=== PATIENT | female | born 1990 | race Caucasian/White ===

== ENCOUNTER 2017-05-02 20:36 | Emergency (ER) | payer SELFPAY ==
[2017-05-02 20:44] VITALS: BP 135/78; PULSE 89; RESP 16; TEMP 36.6; O2SAT 99; BMI 24.2
--- NOTE | 2017-05-02 20:53 | PC.NURSE ---
Critical BG called from lab and reported to
--- NOTE | 2017-05-02 20:56 | HMH.EDEYEP ---
ED Disposition Clinical Impression: Acute iritis Disposition: Home, Self-Care Condition on Discharge: Good Instructions: How to Instill Eye Drops Additional Instructions: call dr cornelius if needed Referrals: Diann Cox PA [Primary Care Provider] - - Critical Care Critical Care Time: No Attestation: On 05/02/17, the high probability of a clinically significant, sudden or life threatening deterioration of the following system(s) required my full and direct attention, intervention and personal management. The time I documented below is in addition to time spent performing reported procedures but includes the following listed in this critical care notation. Medical Decision Making - Medical Records Medical records reviewed: Yes: I reviewed the patient's medical records. Vital Signs: 05/02/17 20:44 Temperature 97.9 F Temperature Source Oral Pulse Rate [Right Brachial] 89 Respiratory Rate 16 Blood Pressure [Right Arm] 135/78 Blood Pressure Mean [Right Arm] 97 Blood Pressure Source [Right Arm] Automatic Cuff Blood Pressure Position [Right Arm] Sitting 02 Sat by Pulse Oximetry 99 Oxygen Delivery Method Room Air - Lab Data Lab results reviewed: Yes: I reviewed the patient's lab results. - Physician Consults Physician Consulted: adryan Reason -: Pt condition - Jeanmarie Inquiry Pt receiving controlled substance: No Eye Problem HPI - General Chief complaint: Eye Problems Stated complaint: FB in eye Time Seen by Provider: 05/02/17 20:57 Mode of Arrival: Ambulatory Source of Information: Patient, Significant Other, Medical Record Limitations: No Limitations Description of Symptoms (Recalled from ER Triage Doc. by RN): RIGHT EYE PAIN, POSSIBLE HAIR DYE - History of Present Illness HPI Narrative: possible hair dye in rt eye this afternoon - pt with pain which has been progressive with blurred vision- she has used visine and irrigated eye after incident chief complaint: eye pain, vision change Onset (ago): hour(s) Onset description: gradual Duration: constant Location: right eye Eye Symptoms: decreased vision, blurry vision, photophobia Place: other (at [facility] ) Mechanism: chemical exposure Severity: moderate If Pain, Quality: burning Treatments Prior to Arrival: irrigated eye, OTC eye drops - Related Data Home Medications Medication Instructions Recorded Confirmed lamotrigine 100 mg disintegrating 100 mg PO QDAY tab 04/08/17 tablet olanzapine 10 mg tablet 10 mg PO QDAY 04/08/17 phentermine 37.5 mg tablet 37.5 mg PO QDAY 04/08/17 Previous Rx's Medication Instructions Recorded fluticasone 50 mcg/actuation nasal 1 spray INTRANASAL QDAY 30 Days 04/08/17 spray,suspension #9.9 g prednisone 20 mg tablet 20 mg PO BID #10 tab 04/08/17 Allergies Allergy/AdvReac Type Severity Reaction Status Date / Time azithromycin [From ZITHROMAX] Allergy Unknown Verified 04/08/17 15:37 butorphanol [From STADOL] Allergy Unknown Verified 04/08/17 15:37 hydrocodone [From LORTAB] Allergy Unknown Verified 04/08/17 15:37 Iodinated Contrast Media - Allergy Unknown Verified 04/08/17 15:37 Oral and [IODINATED CONTRAST MEDIA - IV DYE] morphine [MORPHINE] Allergy Unknown Verified 04/08/17 15:37 oxycodone [From PERCOCET] Allergy Unknown Verified 04/08/17 15:37 promethazine [From PHENERGAN] Allergy Unknown Verified 04/08/17 15:37 [facility] History I have reviewed the patient's past medical history: Yes Medical History: Reports:: Anxiety, Depression Other Surgeries: Yes: Dilation and Curettage Amputation: No Fractures: No - Social History Smoking Status: Current every day smoker Tobacco Type: cigarettes # Packs/Day (cigarettes): 1 Alcohol Intake: never Substance Use Type: denies use - Psychiatric History Expresses thoughts of harming self/others: None Suicide Plan Description: No Plan Pschychiatric History:: Reports:: Anxiety, Depression Family Hx:: Adrienne
--- NOTE | 2017-05-02 21:03 | PC.NURSE ---
Vision test right eye 20/100 Left eye and both eyes 20/20
--- NOTE | 2017-05-02 21:27 | ED_ITS ---
ED Disposition Clinical Impression: Acute iritis Disposition: Home, Self-Care Condition on Discharge: Good Instructions: How to Instill Eye Drops Additional Instructions: call dr cornelius if needed Referrals: Diann Cox PA [Primary Care Provider] - - Critical Care Critical Care Time: No Attestation: On 05/02/17, the high probability of a clinically significant, sudden or life threatening deterioration of the following system(s) required my full and direct attention, intervention and personal management. The time I documented below is in addition to time spent performing reported procedures but includes the following listed in this critical care notation. Medical Decision Making - Medical Records Medical records reviewed: Yes: I reviewed the patient's medical records. Vital Signs: 05/02/17 20:44 Temperature 97.9 F Temperature Source Oral Pulse Rate [Right Brachial] 89 Respiratory Rate 16 Blood Pressure [Right Arm] 135/78 Blood Pressure Mean [Right Arm] 97 Blood Pressure Source [Right Arm] Automatic Cuff Blood Pressure Position [Right Arm] Sitting 02 Sat by Pulse Oximetry 99 Oxygen Delivery Method Room Air - Lab Data Lab results reviewed: Yes: I reviewed the patient's lab results. - Physician Consults Physician Consulted: adryan Reason -: Pt condition - Jeanmarie Inquiry Pt receiving controlled substance: No Eye Problem HPI - General Chief complaint: Eye Problems Stated complaint: FB in eye Time Seen by Provider: 05/02/17 20:57 Mode of Arrival: Ambulatory Source of Information: Patient, Significant Other, Medical Record Limitations: No Limitations Description of Symptoms (Recalled from ER Triage Doc. by RN): RIGHT EYE PAIN, POSSIBLE HAIR DYE - History of Present Illness HPI Narrative: possible hair dye in rt eye this afternoon - pt with pain which has been progressive with blurred vision- she has used visine and irrigated eye after incident chief complaint: eye pain, vision change Onset (ago): hour(s) Onset description: gradual Duration: constant Location: right eye Eye Symptoms: decreased vision, blurry vision, photophobia Place: other (at [facility] ) Mechanism: chemical exposure Severity: moderate If Pain, Quality: burning Treatments Prior to Arrival: irrigated eye, OTC eye drops - Related Data Home Medications Medication Instructions Recorded Confirmed lamotrigine 100 mg disintegrating 100 mg PO QDAY tab 04/08/17 tablet olanzapine 10 mg tablet 10 mg PO QDAY 04/08/17 phentermine 37.5 mg tablet 37.5 mg PO QDAY 04/08/17 Previous Rx's Medication Instructions Recorded fluticasone 50 mcg/actuation nasal 1 spray INTRANASAL QDAY 30 Days 04/08/17 spray,suspension #9.9 g prednisone 20 mg tablet 20 mg PO BID #10 tab 04/08/17 Allergies Allergy/AdvReac Type Severity Reaction Status Date / Time azithromycin [From ZITHROMAX] Allergy Unknown Verified 04/08/17 15:37 butorphanol [From STADOL] Allergy Unknown Verified 04/08/17 15:37 hydrocodone [From LORTAB] Allergy Unknown Verified 04/08/17 15:37 Iodinated Contrast Media - Allergy Unknown Verified 04/08/17 15:37 Oral and [IODINATED CONTRAST MEDIA - IV DYE] morphine [MORPHINE] Allergy Unknown Verified 04/08/17 15:
--- NOTE | 2017-05-02 21:30 | PC.NURSE ---
ASSISTED DR ROSALES WITH EYE PROCEDURES, DR ROSALES SPOKE WITH DR PORTILLO.
[2017-05-02 21:39] VITALS: BP 130/70; PULSE 85; RESP 16; TEMP 36.6
== END 2017-05-02 21:40 | disposition home or self-care (01) ==
PROVIDERS: Emergency Provider Emergency Medicine; PCP Physician Assistant
DX: H20.00 Unspecified acute and subacute iridocyclitis (principal); F41.8 Other specified anxiety disorders; F17.210 Nicotine dependence, cigarettes, uncomplicated; Z88.6 Allergy status to analgesic agent; Z88.1 Allergy status to other antibiotic agents
CPT/HCPCS: 99281

== ENCOUNTER → 2017-10-12 11:22 | Outpatient (CLI) | payer MEDICAID, SELFPAY ==
[2017-10-12 11:45] LABS: Basophils % 0.9 % (0.1-2.0); Eosinophils # 0.1 K/mm3 (0.0-0.4); Eosinophils % 2.6 % (0.1-12.0); Hematocrit 40.3 % (37.0-47.0); Hemoglobin 13.5 g/dL (12.2-16.2); Lymphocytes # 1.5 K/mm3 (0.7-4.5); Lymphocytes % 34.6 K/mm3 (10-50); Mean Corpuscular HGB Conc 33.5 g/dL (31.8-35.4); Mean Corpuscular Hemoglobin 29.8 pg (27.0-31.2); Mean Corpuscular Volume 88.9 fl (81-99); Mean Platelet Volume 6.7 fl (7.4-10.4); Monocytes # 0.2 K/mm3 (0.1-1.0); Monocytes % 5.5 % (1.7-9.3); Neutrophils # 2.5 K/mm3 (1.8-7.8); Neutrophils % 56.4 % (37.0-80.0); Platelet Count 270 K/mm3 (142-424); Red Blood Count 4.53 M/mm3 (4.20-5.40); Red Cell Distribution Width 12.8 % (11.5-17.5); White Blood Count 4.4 K/mm3 (4.8-10.8)
[2017-10-12 13:45] LABS: Carbon Dioxide 26 mmol/L (21.0-32.0); Chloride 105 mmol/L (98-107); Potassium 4.1 mmoL/L (3.5-5.1); Sodium 139 mmol/L (136-145)
[2017-10-12 13:46] LABS: Alanine Aminotransferase 24 U/L (12-78); Albumin Level 3.8 gm/dL (3.4-5.0); Albumin/Globulin Ratio 1.2 (1.1-1.8); Alkaline Phosphatase 68 U/L (46-116); Anion Gap 12.1 mEq/L (5-15); Aspartate Amino Transferase 11 U/L (15-37); Bilirubin,Direct 0.1 mg/dL (0.0-0.2); Bilirubin,Total 0.3 mg/dL (0.2-1.0); Blood Urea Nitrogen 13 mg/dL (7-18); Calcium 9.2 mg/dL (8.5-10.1); Chol/HDL Ratio 2.4 (1-3.5); Cholesterol 164 mg/dL (140-200); Creatinine,Serum 0.67 mg/dL (0.55-1.02); Estimated Glomerular Filt Rate 107 ml/min (>60); Free T4 (Free Thyroxine) 0.95 ng/dl (0.76-1.46); GFR (African American) 130 ML/MIN (>60); Globulin 3.1 gm/dl (1.3-3.2); Glucose 101 mg/dL (74-106); HDL Cholesterol 69 mg/dL (29-89); LDL Cholesterol 85 mg/dL (0-130); Thyroid Stimulating Hormone 0.54 uIU/ml (0.358-3.740); Total Protein,Serum 6.9 gm/dL (6.4-8.2); Triglycerides 52 mg/dL (30-200); VLDL Cholesterol 10 mg/dL (0-40)
[2017-10-12 13:53] LABS: Hemoglobin A1C 5.2 % (0.0-7.0)
[2017-10-15 06:57] LABS: Vitamin B12 692 pg/mL (232-1245); Vitamin D 25 Hydroxy 30.7 ng/mL (30.0-100.0)
== END ==
PROVIDERS: Visit Provider Nurse Practitioner Psychiatric/Mental Health
DX: R53.81 Other malaise (principal)
CPT/HCPCS: 36415; 80053; 80061; 82248; 82607; 82652; 83036; 84439; 84443; 84481; 85025

== ENCOUNTER → 2018-03-22 18:00 | Outpatient (CLI) | payer MEDICAID, SELFPAY ==
[2018-03-22 18:35] LABS: Basophils % 0.6 % (0.1-2.0); Eosinophils # 0.1 K/mm3 (0.0-0.4); Eosinophils % 1.5 % (0.1-12.0); Hematocrit 42.3 % (37.0-47.0); Hemoglobin 13.8 g/dL (12.2-16.2); Lymphocytes # 1.8 K/mm3 (0.7-4.5); Lymphocytes % 27.3 % (10-50); Mean Corpuscular HGB Conc 32.6 g/dL (31.8-35.4); Mean Corpuscular Hemoglobin 29.8 pg (27.0-31.2); Mean Corpuscular Volume 91.4 fl (81-99); Mean Platelet Volume 6.9 fl (7.4-10.4); Monocytes # 0.3 K/mm3 (0.1-1.0); Monocytes % 5.2 % (1.7-9.3); Neutrophils # 4.3 K/mm3 (1.8-7.8); Neutrophils % 65.4 % (37.0-80.0); Platelet Count 290 K/mm3 (142-424); Red Blood Count 4.63 M/mm3 (4.20-5.40); White Blood Count 6.6 K/mm3 (4.8-10.8)
[2018-03-22 19:32] LABS: Alanine Aminotransferase 26 U/L (12-78); Albumin Level 3.9 gm/dL (3.4-5.0); Albumin/Globulin Ratio 1.2 (1.1-1.8); Alkaline Phosphatase 63 U/L (46-116); Anion Gap 14.9 mEq/L (5-15); Aspartate Amino Transferase 13 U/L (15-37); Bilirubin,Total 0.3 mg/dL (0.2-1.0); Blood Urea Nitrogen 13 mg/dL (7-18); Carbon Dioxide 26 mmol/L (21.0-32.0); Chloride 103 mmol/L (98-107); Chol/HDL Ratio 2.9 (1-3.5); Cholesterol 203 mg/dL (140-200); Estimated Glomerular Filt Rate 122 ml/min (>60); Free Thyroxine Index 2.6 ug/dL (5.93-13.13); GFR (African American) 147 ML/MIN (>60); Globulin 3.3 gm/dl (1.3-3.2); Glucose 93 mg/dL (74-106); HDL Cholesterol 71 mg/dL (29-89); LDL Cholesterol 110 mg/dL (0-130); Potassium 3.9 mmoL/L (3.5-5.1); Sodium 140 mmol/L (136-145); T4 (Thyroxine) 8.8 ug/dl (4.7-13.3); Total Protein,Serum 7.2 gm/dL (6.4-8.2); Triglycerides 112 mg/dL (30-200); Triiodothryronine (T3) Uptake 30 % (31-39); VLDL Cholesterol 22 mg/dL (0-40)
[2018-03-23 09:13] LABS: HCG Qualitative, Serum Negative (Negative)
[2018-03-24 13:09] LABS: Vitamin D 25 Hydroxy 24.3 ng/mL (30.0-100.0)
== END ==
PROVIDERS: Visit Provider Physician Assistant
DX: R63.5 Abnormal weight gain (principal)
CPT/HCPCS: 80053; 80061; 82652; 84436; 84443; 84479; 84703; 85025

== ENCOUNTER → 2018-04-27 14:52 | Outpatient (CLI) | payer MEDICAID, SELFPAY ==
[2018-04-27 19:41] LABS: Free Thyroxine Index 2.5 ug/dL (5.93-13.13); T4 (Thyroxine) 8.2 ug/dl (4.7-13.3); Thyroid Stimulating Hormone 0.73 uIU/ml (0.358-3.740); Triiodothryronine (T3) Uptake 31 % (31-39)
[2018-04-29 09:48] LABS: Estradiol 19.7 pg/mL (.); FSH 5.5 mIU/mL (.); LH 6.5 mIU/mL (.); Triiodothyronine (T3) Free 3.6 pg/mL (2.0-4.4)
== END ==
PROVIDERS: Visit Provider Nurse Practitioner Obstetrics & Gynecology
DX: R53.83 Other fatigue (principal)
CPT/HCPCS: 36415; 82670; 83001; 83002; 84436; 84443; 84479; 84481

== ENCOUNTER → 2018-05-25 16:18 | Outpatient (CLI) | payer MEDICAID, SELFPAY ==
--- NOTE | 2018-05-25 16:21 | XR_ITS ---
XR chest 2V HISTORY: ITS.REASON: Cough, left chest pain ORDERING PHYSICIAN: CLINT Grullon PATIENT AGE: 27 years COMPARISON: 11/12/2016 FINDINGS: The cardiomediastinal silhouette and pulmonary vascularity are within normal limits. The lungs are clear without infiltrates, suspicious nodules, or pleural effusions. There is mild thoracic curvature convex right No acute bony abnormalities. IMPRESSION: Negative chest, no acute finding
== END ==
PROVIDERS: PCP Physician Assistant; Visit Provider Physician Assistant
DX: R05 Cough (principal)
CPT/HCPCS: 71046

== ENCOUNTER → 2018-10-15 17:29 | Outpatient (CLI) | payer MEDICAID, SELFPAY | LOC: LAB 17:30 → LAB.DROPOF 17:32 | PROVIDERS: Visit Provider Nurse Practitioner Family | DX: J02.9 Acute pharyngitis, unspecified (principal) ==

== ENCOUNTER → 2019-04-14 13:17 | Outpatient (CLI) | payer BC, SELFPAY ==
[2019-04-14 13:34] LABS: Basophils # 0.1 K/mm3 (0-0.2); Basophils % 1.2 % (0.1-2.0); Eosinophils # 0.6 K/mm3 (0.0-0.4); Eosinophils % 9.7 % (0.1-12.0); Hematocrit 42.6 % (37.0-47.0); Hemoglobin 14.3 g/dL (12.2-16.2); Lymphocytes # 2.3 K/mm3 (0.7-4.5); Lymphocytes % 35.7 % (10-50); Mean Corpuscular HGB Conc 33.7 g/dL (31.8-35.4); Mean Corpuscular Hemoglobin 29.8 pg (27.0-31.2); Mean Corpuscular Volume 88.6 fl (81-99); Mean Platelet Volume 7.6 fl (7.4-10.4); Monocytes # 0.3 K/mm3 (0.1-1.0); Monocytes % 4.3 % (1.7-9.3); Neutrophils # 3.2 K/mm3 (1.8-7.8); Neutrophils % 49.1 % (37.0-80.0); Platelet Count 373 K/mm3 (142-424); Red Blood Count 4.81 M/mm3 (4.20-5.40); Red Cell Distribution Width 13.2 % (11.5-17.5); White Blood Count 6.6 K/mm3 (4.8-10.8)
[2019-04-14 14:23] LABS: Alanine Aminotransferase 30 U/L (12-78); Albumin Level 4.1 gm/dL (3.4-5.0); Albumin/Globulin Ratio 1.5 (1.1-1.8); Alkaline Phosphatase 70 U/L (46-116); Anion Gap 13.5 mEq/L (5-15); Aspartate Amino Transferase 19 U/L (15-37); Bilirubin,Total 0.2 mg/dL (0.2-1.0); Blood Urea Nitrogen 10 mg/dL (7-18); Calcium 8.8 mg/dL (8.5-10.1); Carbon Dioxide 26 mmol/L (21.0-32.0); Chloride 103 mmol/L (98-107); Chol/HDL Ratio 3.3 (1-3.5); Cholesterol 179 mg/dL (140-200); Creatinine,Serum 0.52 mg/dL (0.55-1.02); Estimated Glomerular Filt Rate 143 ml/min (>60); GFR (African American) 172 ML/MIN (>60); Globulin 2.8 gm/dl (1.3-3.2); Glucose 73 mg/dL (74-106); HDL Cholesterol 54 mg/dL (29-89); LDL Cholesterol 94 mg/dL (0-130); Potassium 4.5 mmoL/L (3.5-5.1); Sodium 138 mmol/L (136-145); Thyroid Stimulating Hormone 1.04 uIU/ml (0.358-3.740); Total Protein,Serum 6.9 gm/dL (6.4-8.2); Triglycerides 157 mg/dL (30-200); VLDL Cholesterol 31 mg/dL (0-40)
[2019-04-15 17:01] LABS: Vitamin D 25 Hydroxy 45.7 ng/mL (30.0-100.0)
== END ==
PROVIDERS: Visit Provider Physician Assistant
DX: R53.1 Weakness (principal)
CPT/HCPCS: 80053; 80061; 82652; 84436; 84443; 85025

== ENCOUNTER → 2019-04-29 09:45 | Outpatient (CLI) | payer BC, SELFPAY ==
--- NOTE | 2019-04-29 09:46 | MR_ITS ---
PROCEDURE: MR HEAD/BRAIN WO CON CLINICAL INDICATION: right side weakness, facial numbness, difficulty COMPARISON: No exams were available for comparison TECHNIQUE: Routine multiplanar multisequence exam was performed. FINDINGS: There is no infarct hemorrhage mass mass effect extra-axial fluid collection or white matter signal abnormality. Ventricles are of normal size, symmetrical and midline. Normal flow voids are seen in both carotid arteries and in the basilar artery. There is pansinusitis with mucosal thickening greatest in the bilateral maxillary sinuses, left greater than right. A 2 centimeter mucous retention cyst is seen in the left maxillary sinus. There is no air-fluid level. IMPRESSION: No acute intracranial pathology. Pansinusitis. Dictated by: César Horta 04/29/2019 11:07 Electronically signed by César Horta in [place] 04/29/2019 11:07
== END ==
PROVIDERS: PCP Physician Assistant; Visit Provider Physician Assistant
DX: R53.1 Weakness (principal); R20.0 Anesthesia of skin; R49.0 Dysphonia
CPT/HCPCS: 70551

== ENCOUNTER → 2019-05-02 08:00 | Outpatient (POV) | payer BC, SELFPAY | PROVIDERS: PCP Physician Assistant; Visit Provider Specialist | DX: R20.0 Anesthesia of skin (principal); R49.0 Dysphonia; R53.1 Weakness | CPT/HCPCS: 95816 ==

== ENCOUNTER → 2019-05-23 11:09 | Outpatient (CLI) | payer BC, SELFPAY ==
[2019-05-24 12:24] LABS: Anti-Centromere B Antibodies <0.2 AI (0.0-0.9); Anti-Jo-1 <0.2 AI (0.0-0.9); Anti-Smith Antibody <0.2 AI (0.0-0.9); Antichromatin Antibodies <0.2 AI (0.0-0.9); Antiscleroderma-70 Antibodies <0.2 AI (0.0-0.9); RNP Antibodies 0.2 AI (0.0-0.9); Sjogren's Anti-SS-A <0.2 AI (0.0-0.9); Sjogren's Anti-SS-B <0.2 AI (0.0-0.9)
[2019-05-27 11:22] LABS: Anti-Cardio Antibody IgM <9 MPL U/mL (0-12); Anti-Cardiolipin Antibody IgG <9 GPL U/mL (0-14); Anti-DNA (DS) Ab Qn 2 IU/mL (0-9); Anticardiolipin Ab,IgA,Qn <9 APL U/mL (0-11)
[2019-05-28 06:53] LABS: APTT 25.2 sec (.); Anti-Cardiolipin Antibody IgG <10 GPL (.); Anti-Cardiolipin Antibody IgM <10 MPL (.); Beta-2 Glycoprotein I Ab, IgA <10 SAU (.); Beta-2 Glycoprotein I Ab, IgG <10 SGU (.); Beta-2 Glycoprotein I Ab, IgM <10 SMU (.); Hexagonal Phase Phospholipid 0 sec (.); Prothrombin Time 10.5 sec (.); Thrombin Time 16.7 sec (.)
== END ==
PROVIDERS: Visit Provider Specialist
DX: J32.4 Chronic pansinusitis (principal); R20.0 Anesthesia of skin; R29.90 Unspecified symptoms and signs involving the nervous system; R40.4 Transient alteration of awareness
CPT/HCPCS: 36415; 85597; 85598; 85610; 85613; 85670; 85730; 86146; 86147; 86225; 86235

== ENCOUNTER → 2019-06-11 10:35 | Outpatient (CLI) | payer BC, SELFPAY ==
--- NOTE | 2019-06-11 10:52 | XR_ITS ---
PROCEDURE: XR CHEST 2V CLINICAL HISTORY: dyspnea Cough COMPARISON: [facility] CT CHEST W/O CONTRAST from 02/19/2015 CXR CHEST(2 VIEWS-NOT PORTABLE) from 02/26/2016 CXR CHEST(2 VIEWS-NOT PORTABLE) from 11/12/2016 CXR2V XR chest 2V from 05/25/2018 FINDINGS: The cardiomediastinal silhouette and pulmonary vascularity are within normal limits. The lungs are clear without infiltrates, suspicious nodules, or pleural effusions. No acute bony abnormalities. IMPRESSION: No acute findings. Dictated by: César Horta 06/11/2019 12:02 Electronically signed by César Horta in [place] 06/11/2019 12:02
== END ==
PROVIDERS: PCP Physician Assistant; Visit Provider Physician Assistant
DX: R06.00 Dyspnea, unspecified (principal)
CPT/HCPCS: 71046

== ENCOUNTER → 2019-08-08 14:11 | Outpatient (CLI) | payer BC, SELFPAY ==
--- NOTE | 2019-08-08 14:15 | XR_ITS ---
PROCEDURE: XR KNEE RT 3V CLINICAL INDICATION: right knee pain Lateral knee pain COMPARISON: KNEE3R KNEE-3 VIEWS-RT from 08/07/2014 FINDINGS: No fracture or dislocation. No lytic or blastic change. There is normal mineralization. The joint spaces are well-preserved. No significant degenerative/arthritic changes. No erosive changes evident. Other findings:There is a small opacity just posterior to the distal femur on the lateral view. This is of questionable clinical significance and may be due to artifact. A developing phleboliths also consideration IMPRESSION: No acute finding Dictated by: Edgardo Dowell MD 08/08/2019 15:38 Electronically signed by Edgardo Dowell MD in [place] 08/08/2019 15:38
== END ==
PROVIDERS: PCP Physician Assistant; Visit Provider Physician Assistant
DX: M25.561 Pain in right knee (principal)
CPT/HCPCS: 73562

== ENCOUNTER → 2019-08-17 08:07 | Outpatient (CLI) | payer BC, SELFPAY ==
--- NOTE | 2019-08-17 08:08 | MR_ITS ---
PROCEDURE: MR KNEE RT WO CON CLINICAL INDICATION: right knee pain Knee pain especially when bending, grinding of the knee, knee instability COMPARISON: XR KNEE RT 3V from 08/08/2019 TECHNIQUE: Routine multiplanar multi echo sequences are performed without gadolinium enhancement. FINDINGS: The cruciate ligaments, collateral ligaments, patellar tendon, and quadriceps tendon have an unremarkable appearance. No evidence of meniscal tear. The patellar cartilage is preserved. No significant arthritic changes. No bone marrow edema. There is trace amount of fluid in the knee joint. No soft tissue abnormalities apparent. IMPRESSION: No evidence of internal derangement Trace knee joint effusion otherwise negative MRI of the right knee the Dictated by: Edgardo Dowell MD 08/18/2019 18:20 Electronically signed by Edgardo Dowell MD in [place] 08/18/2019 18:20
== END ==
PROVIDERS: PCP Physician Assistant; Visit Provider Physician Assistant
DX: M25.561 Pain in right knee (principal)
CPT/HCPCS: 73721

== ENCOUNTER 2019-09-28 08:30 | Outpatient (RCR) | payer BC, SELFPAY | END 2019-09-28 08:35 | disposition home or self-care (01) | LOC: PT 08:30 | PROVIDERS: PCP Physician Assistant; Visit Provider Orthopaedic Surgery | DX: M25.561 Pain in right knee (principal) | CPT/HCPCS: 97010; 97014; 97035; 97110; 97163; G0283 ==

== ENCOUNTER → 2020-01-04 14:48 | Outpatient (CLI) | payer BC, SELFPAY ==
[2020-01-04 15:25] LABS: Basophils # 0.1 K/mm3 (0-0.2); Basophils % 1.2 % (0.1-2.0); Chloride 102 mmol/L (98-107); Eosinophils # 0.3 K/mm3 (0.0-0.4); Eosinophils % 6.7 % (0.1-12.0); Hematocrit 43.9 % (37.0-47.0); Hemoglobin 14.7 g/dL (12.2-16.2); Lymphocytes # 2.1 K/mm3 (0.7-4.5); Mean Corpuscular HGB Conc 33.6 g/dL (31.8-35.4); Mean Corpuscular Hemoglobin 30.5 pg (27.0-31.2); Mean Corpuscular Volume 90.7 fl (81-99); Mean Platelet Volume 7.2 fl (7.4-10.4); Monocytes # 0.3 K/mm3 (0.1-1.0); Monocytes % 5.3 % (1.7-9.3); Neutrophils # 2.3 K/mm3 (1.8-7.8); Neutrophils % 45.7 % (37.0-80.0); Platelet Count 358 K/mm3 (142-424); Potassium 4.7 mmoL/L (3.5-5.1); Red Blood Count 4.84 M/mm3 (4.20-5.40); Red Cell Distribution Width 13.4 % (11.5-17.5); Sodium 138 mmol/L (136-145); White Blood Count 5.1 K/mm3 (4.8-10.8)
[2020-01-04 15:28] LABS: Alanine Aminotransferase 18 U/L (12-78); Albumin Level 4.8 g/dl (3.5-5.0); Albumin/Globulin Ratio 1.8 (1.1-1.8); Alkaline Phosphatase 67 U/L (38-126); Anion Gap 12.7 mEq/L (5-15); Aspartate Amino Transferase 30 U/L (14-36); Bilirubin,Total 0.4 mg/dl (0.2-1.3); Blood Urea Nitrogen 9 mg/dl (7-17); Carbon Dioxide 28 mmol/L (22.0-30.0); Cholesterol 228 mg/dl (140-200); Estimated Glomerular Filt Rate 120 ml/min (>60); GFR (African American) 145 ML/MIN (>60); Globulin 2.7 g/dL (1.3-3.2); Monoscreen (Rapid) Negative (Negative); Total Protein,Serum 7.5 g/dl (6.3-8.2); Triglycerides 97 mg/dl (30-150); VLDL Cholesterol 19 mg/dL (0-40)
[2020-01-04 15:29] LABS: Calcium 9.9 mg/dl (8.4-10.2); Chol/HDL Ratio 2.6 (1-3.5); Glucose 81 mg/dl (74-100); HDL Cholesterol 89 mg/dl (40-60)
[2020-01-04 15:40] LABS: Direct LDL Cholesterol 102.58 mg/dL (100-129)
[2020-01-04 15:46] LABS: T4 (Thyroxine) 9.1 ug/dl (5.53-11.0)
[2020-01-04 15:59] LABS: Thyroid Stimulating Hormone 0.63 uIU/mL (0.465-4.68)
[2020-01-06 14:57] LABS: Peripheral Smear Review Scanned Result
[2020-01-06 17:31] LABS: EBV Ab VCA, IgG >600.0 U/mL (0.0-17.9); EBV Ab VCA, IgM <36.0 U/mL (0.0-35.9)
== END ==
PROVIDERS: Visit Provider Physician Assistant
DX: R50.9 Fever, unspecified (principal); R53.83 Other fatigue; R61 Generalized hyperhidrosis
CPT/HCPCS: 80053; 80061; 84436; 84443; 85025; 86318; 86664; 86665

== ENCOUNTER 2020-02-07 05:45 | Emergency (ER) | payer BC, SELFPAY ==
[2020-02-07 05:53] VITALS: BP 167/89; PULSE 103; RESP 16; TEMP 37.2; O2SAT 99; BMI 25.8
--- NOTE | 2020-02-07 06:01 | CT_ITS ---
PROCEDURE: CT SHOULDER RT WO CON CLINICAL HISTORY: Shoulder pain without injury COMPARISON: CT [facility] CT CHEST W/O CONTRAST from 02/19/2015 TECHNIQUE: Axial images obtained with sagittal and coronal reformats. All CT scans at the facility use one or more dose reduction, viz: automated exposure control, ma/kV adjustment per patient size (including targeted exams where dose is matched to indication, i.e. head), or iterative reconstruction technique. FINDINGS: No fracture or dislocation. No lytic or blastic change. No significant arthritic change. There is a macrolobular nodular density in the lateral aspect of the right breast. This measures approximately four mm possibly due to a lymph node toward the axilla. A nodular density was present in this area on a prior chest CT of 02/19/2015 and this does not appear significantly changed. IMPRESSION: Unremarkable CT of the right shoulder. Soft tissue detail is limited by CT. Rotator cuff abnormalities would be better evaluated with MRI if clinically warranted. Benign nodule in the lateral aspect of the right breast and may represent a lymph node not significantly changed. Dictated by: Edgardo Dowell MD 02/07/2020 09:22 Edgardo Dowell MD in [place] 02/07/2020 09:22
--- NOTE | 2020-02-07 06:08 | HMH.EDUPEXT ---
ED Disposition Clinical Impression: Right shoulder tendinitis Disposition: Home, Self-Care Condition on Discharge: Good Instructions: DI for Shoulder Pain Additional Instructions: use meds and see pcp for follow up Prescriptions: methylPREDNISolone [Medrol 4mg tab] 4 mg PO DIRECTED #21 tab Transmission Status: Pending to [facility] Referrals: Diann Cox PA [Primary Care Provider] - - Critical Care Critical Care Time: No Attestation: On 02/07/20, the high probability of a clinically significant, sudden or life threatening deterioration of the following system(s) required my full and direct attention, intervention and personal management. The time I documented below is in addition to time spent performing reported procedures but includes the following listed in this critical care notation. Medical Decision Making - Medical Records Medical records reviewed: Yes: I reviewed the patient's medical records. - Jeanmarie Inquiry Pt receiving controlled substance: No Vital Signs: 02/07/20 05:53 Temperature 99.0 F Temperature Source Oral Pulse Rate [Right] 103 H Respiratory Rate 16 Blood Pressure [Right Arm] 167/89 H Blood Pressure Mean [Right Arm] 115 Blood Pressure Source [Right Arm] Automatic Cuff Blood Pressure Position [Right Arm] Sitting 02 Sat by Pulse Oximetry 99 Oxygen Delivery Method Room Air - Lab Data Lab results reviewed: Yes: I reviewed the patient's lab results. Lab Results 02/07/20 05:00: Urine HCG, Qual Negative Orders (Tests/Meds): ORDERS Category Date Time Status CT shoulder RT wo con Stat Cat Scan 02/07/20 06:01 Taken - CT Data CT Scan: Other (shoulder ) Time Received: 07:[address] Reviewed: Yes: I have viewed the radiologist's interpretation Preliminary Findings: No Fracture Seen Upper Extremity HPI - General Chief Complaint: Extremity Problem,Nontraumatic Stated Complaint: unable to move right arm from elbow up no accident Time Seen by Provider: 02/07/20 06:00 Mode of Arrival: Ambulatory Source of Information: Patient, Medical Record Limitations: No Limitations Description of Symptoms (Recalled from ER Triage Doc. by RN): Pt woke up this morning and now has pain in her right shoulder, denies injury. - History of Present Illness HPI narrative: has rt shoulder pain and rt scapular pain with no def trauma - has slip injury yesterday - no neck pain - MD complaint: injury to: right, shoulder Onset (ago): hour(s) Other Extremity Injury: Right: shoulder Other injuries: none Handedness: right Place: home Severity: moderate Context: other (no def injury) Associated symptoms: denies other symptoms - Related Data Home Medications Medication Instructions Recorded Confirmed montelukast 10 mg tablet 10 mg PO DAILY tab 07/25/19 02/07/20 Meloxicam [Mobic 15 mg tab] 15 mg PO DAILY 02/07/20 02/07/20 Omeprazole [Omeprazole 20mg 20 mg PO DAILY 02/07/20 02/07/20 Capsule] Previous Rx's Medication Instructions Recorded methylPREDNISolone [Medrol 4mg 4 mg PO DIRECTED #21 tab 02/07/20 tab] Allergies Allergy/AdvReac Type Severity Reaction Status Date / Time butorphanol [From STADOL] Allergy Unknown Verified 01/12/20 10:46 hydrocodone [From LORTAB] Allergy Unknown Verified 01/12/20 10:46 Iodinated Contrast Media Allergy Unknown Verified 01/12/20 10:46 [IODINATED CONTRAST MEDIA - IV DYE] morphine [MORPHINE] Allergy Unknown Verified 01/12/20 10:46 oxycodone [From PERCOCET] Allergy Unknown Verified 01/12/20 10:46 promethazine [From PHENERGAN] Allergy Unknown Verified 01/12/20 10:46 [facility] History - Hepatitis A Screen Drug use history?: No High risk sexual behaviors?: No History of sexually transmitted infection?: No Currently employed?: No Childcare worker?: No Do you have indoor plumbing?: Yes Do you have electricity?: Yes Attestation statement:: This patient has been screened for H
[2020-02-07 06:11] LABS: Urine Pregnancy, HCG Qual. Negative (Negative)
--- NOTE | 2020-02-07 06:18 | PC.NURSE ---
pt to RAD
[2020-02-07 07:44] VITALS: BP 119/74; PULSE 71; RESP 16; TEMP 36.6; O2SAT 98
== END 2020-02-07 08:01 | disposition home or self-care (01) ==
PROVIDERS: Emergency Provider Emergency Medicine; PCP Physician Assistant
DX: M77.8 Other enthesopathies, not elsewhere classified (principal); K21.9 Gastro-esophageal reflux disease without esophagitis; F41.8 Other specified anxiety disorders; Z88.5 Allergy status to narcotic agent; F17.210 Nicotine dependence, cigarettes, uncomplicated
CPT/HCPCS: 73200; 81025; 99281

== ENCOUNTER → 2020-03-06 11:59 | Outpatient (CLI) | payer BC, SELFPAY ==
[2020-03-06 13:38] LABS: Coronavirus 19 IgG Antibody Negative (Negative); Coronavirus 19 IgM Antibody Negative (Negative)
== END ==
PROVIDERS: Visit Provider Emergency Medicine
DX: Z03.818 Encounter for observation for suspected exposure to other biological agents ruled out (principal)
CPT/HCPCS: 36415; 86328

== ENCOUNTER 2020-07-02 09:21 | Emergency (ER) | payer BC, SELFPAY ==
[2020-07-02 09:42] VITALS: BP 170/65; PULSE 89; RESP 19; TEMP 37; O2SAT 100; BMI 27.4
--- NOTE | 2020-07-02 10:01 | HMH.EDUTC ---
[facility] Disposition Clinical Impression: Encounter for laboratory testing for COVID-19 virus Disposition: Home, Self-Care Condition on Discharge: Good Instructions: DI for COVID-19 (Suspected or Confirmed ), Coronavirus Disease 2019, Preventing the Spread of Coronavirus Discharge Instructions Additional Instructions: *Monitor Temp, Over the counter Motrin or Tylenol as directed/as needed Tylenol every 4 hours and Motrin every 6 hours (as long as your family doctor has told you that you can take it) for fever or pain. and straight to ER if unable to lower temp less than 101.0 after medication given *Warm salt water gargles may help to soothe the throat *Throat Lozenges *Warm fluids like tea with honey may help to soothe the throat *Sleep elevated *Humidifier/Vaporizer *Flonase 2 sprays in each nostril daily but be aware that it may take 2-3 days before you notice improvement Follow up IMMEDIATELY for new or worsening symptoms or no Noticeable improvement over the next 48-72 hours. 911 for difficulty breathing or swallowing You were tested for today for COVID19 your test result should be back in the next 24-48 hours, you may call to the [facility] to see if your test results are back in the next 48 hours [phone] [facility] hours are 9am-9pm You was given a handout with instructions for Self Quarantine and Self isolation for while you wait on test results and what to do if they are positive If you are positive the Health Dept will be contacting you also Referrals: Diann Cox PA [Primary Care Provider] - As needed Forms: Work/School Release Time of Disposition: 10:07 Medical Decision Making - Jeanmarie Inquiry Pt receiving controlled substance: No Jeanmarie was queried for this patient: No Vital Signs: 07/02/20 09:42 Temperature 98.6 F Temperature Source Oral Pulse Rate [Right Brachial] 89 Respiratory Rate 19 Blood Pressure [Right Arm] 170/65 H Blood Pressure Mean [Right Arm] 100 Blood Pressure Source [Right Arm] Automatic Cuff Blood Pressure Position [Right Arm] Sitting 02 Sat by Pulse Oximetry 100 Orders (Tests/Meds): ORDERS Category Date Time Status Covid-19 Nasal PCR ([facility]) Routine Lab 07/02/20 09:25 Received [facility] HPI - General Stated complaint: covid exposure, symptoms Time Seen by Provider: 07/02/20 10:01 Mode of Arrival: Ambulatory Source of Information: Patient Limitations: No Limitations Description of Symptoms (Recalled from Triage Doc. by RN): Covid test HEENT Symptoms (Recalled from RN notes): Yes Resp Symptoms (Recalled from RN notes): Yes Skin Symptoms (Recalled from RN notes): No MS Symptoms (Recalled from RN notes): No Functional Status (Recalled from RN notes): wnl - History of Present Illness Provider Complaint: Patient states that her recently tested positive for COVID State that she started having body aches and scratchy throat so health dept recommended that she come in and get tested for COVID States that she has had some muscle aches and sore throat - Related Data Home Medications Medication Instructions Recorded Confirmed montelukast 10 mg tablet 10 mg PO DAILY tab 07/25/19 05/14/20 Previous Rx's Medication Instructions Recorded ketorolac 10 mg tablet 10 mg PO TID PRN 5 Days #20 tab 02/08/20 fluticasone propionate 50 1 spray INTRANASAL QDAY 30 Days 03/13/20 mcg/actuation nasal #9.9 g spray,suspension omeprazole 20 mg capsule,delayed 20 mg PO DAILY #90 cap 03/13/20 release phentermine 37.5 mg tablet 37.5 mg PO DAILY #30 tab 06/25/20 albuterol sulfate 90 mcg/actuation 2 puff INHALATION Q6H #8.5 g 06/29/20 aerosol inhaler azithromycin 250 mg tablet See Rx Instructions PO .COMPLEX #6 06/29/20 tab methylprednisolone 4 mg tablets in 4 mg PO PER PKG DIR 6 Days #21 tab 06/29/20 a dose pack Allergies Allergy/AdvReac Type Severity Reaction Status Date / Time tramadol Allergy Mild Vomiting Verified 05/14/20 09:04 butorphanol [From STADOL]
[2020-07-02 10:15] VITALS: BP 170/65; PULSE 89; RESP 19; TEMP 37; O2SAT 100
--- NOTE | 2020-07-02 16:41 | PC.NURSE ---
PT NOTIFIED OF POSITIVE COVID TEST RESULTS
== END 2020-07-02 10:17 | disposition home or self-care (01) ==
PROVIDERS: Emergency Provider Nurse Practitioner; PCP Physician Assistant
DX: U07.1 COVID-19 (principal); F41.9 Anxiety disorder, unspecified; K21.9 Gastro-esophageal reflux disease without esophagitis; Z79.899 Other long term (current) drug therapy
CPT/HCPCS: 99202; G0463; U0003

== ENCOUNTER → 2020-08-14 10:45 | Outpatient (CLI) | payer BC, SELFPAY ==
[2020-08-14 11:17] LABS: Basophils # 0.1 K/mm3 (0-0.2); Basophils % 0.8 % (0.1-2.0); Eosinophils # 0.2 K/mm3 (0.0-0.4); Eosinophils % 3.9 % (0.1-12.0); Hematocrit 42.4 % (37.0-47.0); Hemoglobin 14.1 g/dL (12.2-16.2); Lymphocytes % 32.9 % (10-50); Mean Corpuscular HGB Conc 33.3 g/dL (31.8-35.4); Mean Corpuscular Hemoglobin 29.4 pg (27.0-31.2); Mean Corpuscular Volume 88.5 fl (81-99); Monocytes # 0.3 K/mm3 (0.1-1.0); Monocytes % 4.9 % (1.7-9.3); Neutrophils # 3.4 K/mm3 (1.8-7.8); Neutrophils % 57.5 % (37.0-80.0); Platelet Count 362 K/mm3 (142-424); Red Blood Count 4.79 M/mm3 (4.20-5.40); Red Cell Distribution Width 13.4 % (11.5-17.5); White Blood Count 5.9 K/mm3 (4.8-10.8)
[2020-08-14 12:25] LABS: Chloride 103 mmol/L (98-107)
[2020-08-14 12:26] LABS: Potassium 4.1 mmoL/L (3.5-5.1); Sodium 136 mmol/L (136-145)
[2020-08-14 12:28] LABS: Alanine Aminotransferase 22 U/L (12-78); Aspartate Amino Transferase 24 U/L (14-36); Blood Urea Nitrogen 7 mg/dl (7-17); Estimated Glomerular Filt Rate 147 ml/min (>60); GFR (African American) 178 ML/MIN (>60)
[2020-08-14 12:29] LABS: Albumin Level 4.9 g/dl (3.5-5.0); Albumin/Globulin Ratio 1.8 (1.1-1.8); Alkaline Phosphatase 75 U/L (38-126); Anion Gap 12.1 mEq/L (5-15); Bilirubin,Total 0.5 mg/dl (0.2-1.3); Calcium 9.5 mg/dl (8.4-10.2); Carbon Dioxide 25 mmol/L (22.0-30.0); Globulin 2.7 g/dL (1.3-3.2); Glucose 96 mg/dl (74-100); Total Protein,Serum 7.6 g/dl (6.3-8.2)
[2020-08-14 12:37] LABS: Erythrocyte Sedimentation Rate 19 mm/hr (0-20)
[2020-08-14 12:38] LABS: C-Reactive Protein 0.9 mg/L (0-4)
[2020-08-14 12:46] LABS: T4 (Thyroxine) 9.8 ug/dl (5.53-11.0)
[2020-08-14 12:59] LABS: Thyroid Stimulating Hormone 0.83 uIU/mL (0.465-4.68)
[2020-08-14 13:28] LABS: HCG Qualitative, Serum Negative (Negative)
[2020-08-15 08:21] LABS: Thyroid Peroxidase Antibodies <9 IU/mL (0-34)
[2020-08-15 12:11] LABS: RA Latex Turbid. <10.0 IU/mL (0.0-13.9)
[2020-08-15 15:10] LABS: Anti-Centromere B Antibodies <0.2 AI (0.0-0.9); Anti-DNA (DS) Ab Qn 1 IU/mL (0-9); Anti-Jo-1 <0.2 AI (0.0-0.9); Anti-Smith Antibody <0.2 AI (0.0-0.9); Antichromatin Antibodies <0.2 AI (0.0-0.9); Antiscleroderma-70 Antibodies <0.2 AI (0.0-0.9); RNP Antibodies 0.2 AI (0.0-0.9); Sjogren's Anti-SS-A <0.2 AI (0.0-0.9); Sjogren's Anti-SS-B <0.2 AI (0.0-0.9)
[2020-08-17 00:07] LABS: Anti-Cyclic Citrullinated Pept 6 units (0-19)
[2020-08-17 16:40] LABS: Lupus Reflex Interpretation Comment: (.); PTT-LA 34.5 sec (0.0-51.9); dRVVT 37.7 sec (0.0-47.0)
[2020-08-18 09:14] LABS: Thyroid Stimulating Immunoglob <0.10 IU/L (0.00-0.55)
== END ==
PROVIDERS: Visit Provider Physician Assistant
DX: E01.0 Iodine-deficiency related diffuse (endemic) goiter (principal); M25.50 Pain in unspecified joint; R53.83 Other fatigue; R60.9 Edema, unspecified
CPT/HCPCS: 36415; 80053; 84436; 84443; 84445; 84481; 84703; 85025; 85613; 85651; 86140; 86200; 86225; 86235; 86376; 86431

== ENCOUNTER → 2020-08-22 09:32 | Outpatient (CLI) | payer BC, SELFPAY ==
--- NOTE | 2020-08-22 09:32 | US_ITS ---
PROCEDURE: US THYROID CLINICAL INDICATION: thyromegaly COMPARISON: US THY US THYROID from 03/19/2016 FINDINGS: Right lobe: 4.6 by 2.1 x 1.2 cm. 4 millimeter complex nodule midportion, 4 millimeter complex nodule lower pole, and 6 millimeter solid nodule lower pole. Left lobe: 4.7 x 1.7 x 1.6 cm. 1.2 cyst midportion, 6 millimeter predominately cystic nodule lower pole. Isthmus: 3 millimeters. No focal abnormality. Additional findings: Thyroid echogenicity and echotexture is normal. No abnormal vascularity. IMPRESSION: Bilateral subcentimeter cysts and complex nodules, with 6 mm solid nodule lower pole right thyroid lobe. Repeat thyroid ultrasound in 6 months is recommended for close follow-up. Dictated by: Ravinder Powers MD 08/22/2020 10:53 Ravinder Powers MD in [place] 08/22/2020 10:53
== END ==
PROVIDERS: PCP Physician Assistant; Visit Provider Physician Assistant
DX: E01.0 Iodine-deficiency related diffuse (endemic) goiter (principal)
CPT/HCPCS: 76536

== ENCOUNTER 2020-08-31 22:23 | Emergency (ER) | payer BC, SELFPAY ==
[2020-08-31 22:25] VITALS: BP 145/93; PULSE 111; RESP 18; TEMP 37.7; O2SAT 99; BMI 27.4
--- NOTE | 2020-08-31 22:41 | HMH.EDWNDL ---
ED Disposition Clinical Impression: Finger avulsion Qualifiers: Encounter type: initial encounter Qualified Code(s): S61.209A - Unspecified open wound of unspecified finger without damage to nail, initial encounter Disposition: Home, Self-Care Condition on Discharge: Good Instructions: DI for Abrasion Additional Instructions: recheck if any problems Referrals: Provider,Referral, [Primary Care Provider] - - Critical Care Critical Care Time: No Attestation: On 08/31/20, the high probability of a clinically significant, sudden or life threatening deterioration of the following system(s) required my full and direct attention, intervention and personal management. The time I documented below is in addition to time spent performing reported procedures but includes the following listed in this critical care notation. Medical Decision Making - Medical Records Medical records reviewed: Yes: I reviewed the patient's medical records. - Jeanmarie Inquiry Pt receiving controlled substance: No Vital Signs: 08/31/20 22:25 Temperature 99.8 F H Temperature Source Oral Pulse Rate [Right] 111 H Respiratory Rate 18 Blood Pressure [Right Arm] 145/93 H Blood Pressure Mean [Right Arm] 110 Blood Pressure Source [Right Arm] Automatic Cuff Blood Pressure Position [Right Arm] Sitting 02 Sat by Pulse Oximetry 99 Oxygen Delivery Method Room Air - Lab Data Lab results reviewed: Yes: I reviewed the patient's lab results. Wound/Laceration HPI - General Chief Complaint: Wound/Laceration Stated Complaint: AO 08/31 lac R Ring finger Time Seen by Provider: 08/31/20 22:41 Mode of Arrival: Ambulatory Source of Information: Patient, Medical Record Limitations: No Limitations Description of Symptoms (Recalled from ER Triage Doc. by RN): Pt states she cut her right ring finger on a mandolin through the nail. Bleeding is controlled on arrival. - History of Present Illness HPI narrative: lac to rt 4th finger nail tonight Onset (ago): hour(s) Extremity Location: Right: hand Place: home Patient tetanus UTD: Yes Context: sharp object use - Related Data Home Medications Medication Instructions Recorded Confirmed montelukast 10 mg tablet 10 mg PO DAILY tab 07/25/19 08/30/20 Previous Rx's Medication Instructions Recorded levothyroxine 25 mcg tablet 25 mcg PO DAILY #90 tab 08/21/20 Allergies Allergy/AdvReac Type Severity Reaction Status Date / Time tramadol Allergy Mild Vomiting Verified 08/30/20 10:54 butorphanol [From STADOL] Allergy Unknown Verified 08/30/20 10:54 hydrocodone [From LORTAB] Allergy Unknown Verified 08/30/20 10:54 Iodinated Contrast Media Allergy Unknown Verified 08/30/20 10:54 [IODINATED CONTRAST MEDIA - IV DYE] morphine [MORPHINE] Allergy Unknown Verified 08/30/20 10:54 oxycodone [From PERCOCET] Allergy Unknown Verified 08/30/20 10:54 promethazine [From PHENERGAN] Allergy Unknown Verified 08/30/20 10:54 [facility] History - Hepatitis A Screen Drug use history?: No High risk sexual behaviors?: No History of sexually transmitted infection?: No Currently employed?: No Childcare worker?: No Do you have indoor plumbing?: Yes Do you have electricity?: Yes Attestation statement:: This patient has been screened for Hepatitis A risk factors. I have reviewed the patient's past medical history: Yes Medical History: Reports:: Anxiety, BPH, Depression, Gastroesophageal Reflux Disease(GERD), Migraine, Palpitations, Ulcer Denies:: Cancer, Diabetes Mellitus Type 1, Diabetes Mellitus Type 2, MRSA Comment: BIPOLAR Other Surgeries: Yes: Dilation and Curettage Amputation: No Fractures: No Comment: DENTAL SURGERY - Social History Smoking Status: Current every day smoker Tobacco Type: cigarettes # Packs/Day (cigarettes): 1 Alcohol Intake: never Alcohol Intake Frequency:: other Substance Use Type: denies use Occupational Status: employed Housing: house - Psychiatric History [facility]
[2020-08-31 22:53] VITALS: BP 142/88; PULSE 96; RESP 16; TEMP 37.7; O2SAT 99
--- NOTE | 2020-08-31 23:06 | PC.NURSE ---
Tube Gauze dressing placed over right ring finger after cleaning with soap and water
== END 2020-08-31 23:07 | disposition home or self-care (01) ==
PROVIDERS: Emergency Provider Emergency Medicine; PCP Emergency Medicine
DX: S61.314A Laceration without foreign body of right ring finger with damage to nail, initial encounter (principal); W45.0XXA Nail entering through skin, initial encounter; Y92.019 Unspecified place in single-family (private) house as the place of occurrence of the external cause; F41.8 Other specified anxiety disorders; K21.9 Gastro-esophageal reflux disease without esophagitis; F17.210 Nicotine dependence, cigarettes, uncomplicated
CPT/HCPCS: 99281

== ENCOUNTER → 2020-09-11 10:13 | Outpatient (CLI) | payer BC, SELFPAY ==
[2020-09-11 10:18] LABS: MANUAL DIFFERENTIAL MANUAL DIFFERENTIAL (MANUAL DIFF)
[2020-09-11 10:18] LABS: Adenovirus F 40/41, stool Not Detected (NotDetected); Astrovirus Not Detected (NotDetected); Campylobacter Not Detected (NotDetected); Clostridium Difficile A/B, PCR Not Detected (NotDetected); Cyclospora Cayetanesis Not Detected (NotDetected); Entamoeba histolytica Not Detected (NotDetected); Enteroaggregative E coli Not Detected (NotDetected); Enteropathogenic E coli Not Detected (NotDetected); Enterotoxigenic E coli Not Detected (NotDetected); Giardia lamblia Not Detected (NotDetected); Norovirus Not Detected (NotDetected); Plesimonas Shigalloides, PCR Not Detected (NotDetected); Rotavirus A Not Detected (NotDetected); Salmonella, PCR Not Detected (NotDetected); Sapovirus Not Detected (NotDetected); Shiga-like toxin E coli Not Detected (NotDetected); Shigella Enterovasive E coli Not Detected (NotDetected); Vibrio Cholerae Not Detected (NotDetected); Vibrio, PCR Not Detected (NotDetected); Yersinia Entercolitica, PCR Not Detected (NotDetected)
[2020-09-11 10:49] LABS: Basophils % 0.9 % (0.1-2.0); Eosinophils # 0.1 K/mm3 (0.0-0.4); Eosinophils % 1.8 % (0.1-12.0); Hematocrit 41.6 % (37.0-47.0); Hemoglobin 14.1 g/dL (12.2-16.2); Lymphocytes # 1.5 K/mm3 (0.7-4.5); Lymphocytes % 31.4 % (10-50); Mean Corpuscular Hemoglobin 29.3 pg (27.0-31.2); Mean Corpuscular Volume 86.3 fl (81-99); Mean Platelet Volume 6.6 fl (7.4-10.4); Monocytes # 0.4 K/mm3 (0.1-1.0); Monocytes % 9.2 % (1.7-9.3); Neutrophils # 2.7 K/mm3 (1.8-7.8); Neutrophils % 56.7 % (37.0-80.0); Platelet Count 289 K/mm3 (142-424); Red Blood Count 4.82 M/mm3 (4.20-5.40); Red Cell Distribution Width 12.7 % (11.5-17.5); White Blood Count 4.8 K/mm3 (4.8-10.8)
[2020-09-11 10:54] LABS: Occult Blood,Stool Negative (Negative)
[2020-09-11 11:19] LABS: Chloride 106 mmol/L (98-107); Potassium 4.6 mmoL/L (3.5-5.1); Sodium 139 mmol/L (136-145)
[2020-09-11 11:21] LABS: Blood Urea Nitrogen 8 mg/dl (7-17); Estimated Glomerular Filt Rate 147 ml/min (>60); GFR (African American) 178 ML/MIN (>60)
[2020-09-11 11:22] LABS: Alanine Aminotransferase 23 U/L (12-78); Albumin Level 4.8 g/dl (3.5-5.0); Albumin/Globulin Ratio 1.8 (1.1-1.8); Alkaline Phosphatase 73 U/L (38-126); Anion Gap 14.6 mEq/L (5-15); Aspartate Amino Transferase 31 U/L (14-36); Bilirubin,Total 0.3 mg/dl (0.2-1.3); Calcium 9.7 mg/dl (8.4-10.2); Carbon Dioxide 23 mmol/L (22.0-30.0); Globulin 2.6 g/dL (1.3-3.2); Glucose 89 mg/dl (74-100); Total Protein,Serum 7.4 g/dl (6.3-8.2)
[2020-09-11 12:37] LABS: Hypochromasia 1+; Lymphocytes % 18 % (10-50); Microcytosis 1+; Monocytes % 14 % (2-9); Neutrophils % 66 % (42-76); Nucleated Red Blood Cells 4; Platelet Estimate Normal; Total Cells Counted 100
[2020-09-12 08:19] LABS: Cryptosporidium Detected (NotDetected)
[2020-09-12 12:18] LABS: Anti-DNA (DS) Ab Qn 1 IU/mL (0-9)
== END ==
PROVIDERS: Visit Provider Physician Assistant
DX: R19.7 Diarrhea, unspecified (principal); E01.0 Iodine-deficiency related diffuse (endemic) goiter; M25.50 Pain in unspecified joint; R53.83 Other fatigue; R60.9 Edema, unspecified; A07.2 Cryptosporidiosis
CPT/HCPCS: 36415; 80053; 82272; 85007; 85014; 85018; 85048; 85049; 86225; 87507; G0328

== ENCOUNTER → 2020-11-01 14:57 | Outpatient (CLI) | payer BC, SELFPAY ==
[2020-11-01 15:25] LABS: Basophils # 0.1 K/mm3 (0-0.2); Basophils % 0.9 % (0.1-2.0); Eosinophils # 0.2 K/mm3 (0.0-0.4); Eosinophils % 2.6 % (0.1-12.0); Hematocrit 38.5 % (37.0-47.0); Hemoglobin 13.1 g/dL (12.2-16.2); Lymphocytes # 2.5 K/mm3 (0.7-4.5); Lymphocytes % 33.5 % (10-50); Mean Corpuscular Hemoglobin 30.4 pg (27.0-31.2); Mean Corpuscular Volume 89.3 fl (81-99); Mean Platelet Volume 7.5 fl (7.4-10.4); Monocytes # 0.4 K/mm3 (0.1-1.0); Monocytes % 4.9 % (1.7-9.3); Neutrophils # 4.3 K/mm3 (1.8-7.8); Neutrophils % 58.1 % (37.0-80.0); Platelet Count 393 K/mm3 (142-424); Red Blood Count 4.32 M/mm3 (4.20-5.40); White Blood Count 7.4 K/mm3 (4.8-10.8)
[2020-11-01 16:01] LABS: Chloride 104 mmol/L (98-107); Sodium 139 mmol/L (136-145)
[2020-11-01 16:03] LABS: Blood Urea Nitrogen 6 mg/dl (7-17); Estimated Glomerular Filt Rate 147 ml/min (>60); GFR (African American) 178 ML/MIN (>60)
[2020-11-01 16:04] LABS: Alanine Aminotransferase 18 U/L (12-78); Albumin Level 4.7 g/dl (3.5-5.0); Albumin/Globulin Ratio 1.9 (1.1-1.8); Alkaline Phosphatase 61 U/L (38-126); Aspartate Amino Transferase 25 U/L (14-36); Calcium 9.5 mg/dl (8.4-10.2); Carbon Dioxide 24 mmol/L (22.0-30.0); Globulin 2.5 g/dL (1.3-3.2); Glucose 92 mg/dl (74-100); Total Protein,Serum 7.2 g/dl (6.3-8.2)
[2020-11-01 16:09] LABS: Bilirubin,Total < 0.1 mg/dl (0.2-1.3)
[2020-11-01 16:21] LABS: T4 (Thyroxine) 9.5 ug/dl (5.53-11.0)
[2020-11-01 16:29] LABS: 25-OH Vitamin D, Total 36.7 ng/mL (30-100)
[2020-11-01 16:35] LABS: Thyroid Stimulating Hormone 0.62 uIU/mL (0.465-4.68)
[2020-11-03 07:47] LABS: Prealbumin 24 mg/dL (14-35); Thyroid Peroxidase Antibodies <8 IU/mL (0-34)
[2020-11-05 16:52] LABS: Thyroid Stimulating Immunoglob <0.10 IU/L (0.00-0.55)
[2020-11-06 19:34] LABS: Vitamin E Alpha Tocopherol 10.2 mg/L (5.9-19.4); Vitamin E Gamma Tocopherol 0.7 mg/L (0.7-4.9)
[2020-11-07 01:26] LABS: Vitamin A 36.6 ug/dL (18.9-57.3)
[2020-11-08 03:48] LABS: Zinc 92 ug/dL (44-115)
== END ==
PROVIDERS: Visit Provider Physician Assistant
DX: E01.0 Iodine-deficiency related diffuse (endemic) goiter (principal); L65.9 Nonscarring hair loss, unspecified; R63.5 Abnormal weight gain; E66.3 Overweight; Z68.29 Body mass index [BMI] 29.0-29.9, adult
CPT/HCPCS: 36415; 80053; 82306; 84134; 84436; 84443; 84445; 84446; 84590; 84630; 85025; 86376

== ENCOUNTER 2021-09-17 15:49 | Emergency (ER) | payer BC, SELFPAY ==
[2021-09-17 16:50] VITALS: BP 121/75; PULSE 93; RESP 16; TEMP 36.9; O2SAT 98; BMI 29.0
[2021-09-17 16:52] LABS: UTC Strep Screen (Rapid) Positive (Negative)
[2021-09-17 16:53] LABS: UTC Influenza A Antigen Negative (Negative)
[2021-09-17 16:54] LABS: UTC Influenza B Antigen Negative (Negative)
--- NOTE | 2021-09-17 17:05 | HMH.EDUTC ---
[facility] [place] Clinical Impression: Strep throat Disposition: Home, Self-Care Condition on Discharge: Good Instructions: Strep Throat, DI for Strep Throat Additional Instructions: Drink plenty of fluids. Take tylenol or ibuprofen for pain or fever. Take the medications as directed. Follow up with your regular doctor. GO TO THE ER FOR ANY WORSENING SYMPTOMS Throw your tooth brush away and get a new one. Prescriptions: Brompheniramine/Pseudoephed/Dm [Bromfed Dm Cough Syrup] 5 ml PO Q6HP PRN #240 ml PRN Reason: Cough Transmission Status: Received by [facility] Amoxicillin [Amoxicillin 875MG Tab] 875 mg PO Q12H #20 tab Transmission Status: Received by [facility] methylPREDNISolone [Medrol] 4 mg PO DIRECTED 6 Days #21 packet Transmission Status: Received by [facility] Referrals: Cordelia Rice PA [Primary Care Provider] - Forms: Work/School Release Time of Disposition: 17:15 Medical Decision Making - Medical Records Medical records reviewed: No: I reviewed the patient's medical records. - Jeanmarie Inquiry Pt receiving controlled substance: No Vital Signs: 09/17/21 16:50 Temperature 98.4 F Temperature Source Oral Pulse Rate [Left] 93 H Respiratory Rate 16 Blood Pressure [Right Arm] 121/75 Blood Pressure Mean [Right Arm] 90 02 Sat by Pulse Oximetry 98 - Lab Data Lab results reviewed: Yes: I reviewed the patient's lab results. Lab Results 09/17/21 16:30: Influenza Type A Ag Negative, Influenza Type B Ag Negative 09/17/21 16:30: Strep Scn [facility] Positive A [facility] [place] - General Stated complaint: fever,Sore throat,vomiting Time Seen by Provider: 09/17/21 17:05 Description of Symptoms (Recalled from Triage Doc. by RN): patient comes in for flu or strep test. patient tested negative at home for covid. patient is have headache, sore throat, nausea. symptoms began yesterday HEENT Symptoms (Recalled from RN notes): Yes Resp Symptoms (Recalled from RN notes): Yes Skin Symptoms (Recalled from RN notes): No MS Symptoms (Recalled from RN notes): No Functional Status (Recalled from RN notes): n/a - History of Present Illness Provider Complaint: She c/o sore throat, chills, n/v and body aches for the past 2 days. - Related Data Home Medications Medication Instructions Recorded Confirmed montelukast 10 mg tablet 10 mg PO DAILY tab 07/25/19 11/01/20 Previous Rx's Medication Instructions Recorded levothyroxine 25 mcg tablet 25 mcg PO DAILY #90 tab 08/21/20 Amoxicillin [Amoxicillin 875MG 875 mg PO Q12H #20 tab 09/17/21 Tab] Brompheniramine/Pseudoephed/Dm 5 ml PO Q6HP PRN #240 ml 09/17/21 [Bromfed Dm Cough Syrup] methylPREDNISolone [Medrol] 4 mg PO DIRECTED 6 Days #21 09/17/21 packet Allergies Allergy/AdvReac Type Severity Reaction Status Date / Time tramadol Allergy Mild Vomiting Verified 11/01/20 14:09 butorphanol [From STADOL] Allergy Unknown Verified 11/01/20 14:09 hydrocodone [From LORTAB] Allergy Unknown Verified 11/01/20 14:09 Iodinated Contrast Media Allergy Unknown Verified 11/01/20 14:09 [IODINATED CONTRAST MEDIA - IV DYE] morphine [MORPHINE] Allergy Unknown Verified 11/01/20 14:09 oxycodone [From PERCOCET] Allergy Unknown Verified 11/01/20 14:09 promethazine [From PHENERGAN] Allergy Unknown Verified 11/01/20 14:09 - Worker's Comp Is this a Worker's Comp case?: No [facility] History - Hepatitis A Screen Attestation statement:: This patient has been screened for Hepatitis A risk factors. I have reviewed the patient's past medical history: Yes Medical History: Reports:: Anxiety, BPH, Depression, Gastroesophageal Reflux Disease(GERD), Migraine, Palpitations, Ulcer Denies:: Cancer, Diabetes Mellitus Type 1, Diabetes Mellitus Type 2, MRSA Comment: BIPOLAR Other Surgeries: Yes: Dilation and Curettage, Other Amputation: No Fractures: No Comment: DENTAL [place]
[2021-09-17 17:33] VITALS: BP 121/75; PULSE 93; RESP 16; TEMP 36.9
[2021-09-17 19:15] LABS: UTC Strep Screen (Rapid) Positive (Negative)
== END 2021-09-17 17:36 | disposition home or self-care (01) ==
PROVIDERS: Emergency Provider Nurse Practitioner Family; PCP Physician Assistant
DX: J02.0 Streptococcal pharyngitis (principal); B95.0 Streptococcus, group A, as the cause of diseases classified elsewhere; R00.2 Palpitations; K21.9 Gastro-esophageal reflux disease without esophagitis; G43.909 Migraine, unspecified, not intractable, without status migrainosus; L98.499 Non-pressure chronic ulcer of skin of other sites with unspecified severity; F31.9 Bipolar disorder, unspecified; F17.210 Nicotine dependence, cigarettes, uncomplicated; Z79.52 Long term (current) use of systemic steroids; Z88.5 Allergy status to narcotic agent; Z88.6 Allergy status to analgesic agent; Z88.8 Allergy status to other drugs, medicaments and biological substances; Z91.041 Radiographic dye allergy status; Z80.9 Family history of malignant neoplasm, unspecified; Z83.49 Family history of other endocrine, nutritional and metabolic diseases
CPT/HCPCS: 87804; 87880; 99213; G0463